=== PATIENT | male | born 1955 | race Caucasian/White ===

== ENCOUNTER 2019-02-18 12:47 | Emergency (ER) | payer MEDICAID, OTHER ==
[~2019-02-18] VITALS: Ht 167.6 cm; Wt 72.6 kg
[2019-02-18] MEDS ORDERED: SODIUM CHLORIDE 0.9% 1,000 ML IV ONE (12:56)
[2019-02-18 13:25] LABS: Basophils # (auto) 0.1 uL; Basophils % (auto) 2.1 % (0.0-2.0); Eosinophils # (auto) 0.1 uL; Eosinophils % (auto) 2.5 % (0.0-7.0); Hematocrit 33.8 % (41.0-53.0); Hemoglobin 11.5 g/dL (13.5-17.5); Lymphocytes # (auto) 1.5 uL; Mean Corpuscular Hgb Conc. 34.1 g/dL (32.0-36.0); Mean Corpuscular Volume 91.1 fL (80.0-100.0); Monocytes # (auto) 0.9 uL; Neutrophils % (auto) 53.4 % (37.0-80.0); Nucleated Red Blood Cells % 0.1 %; Platelet Count (auto) 239 10^3/uL (140-450); Red Blood Cells 3.71 10^6/uL (4.5-5.90); White Blood Cell 5.7 10^3/uL (4.4-10.8)
[2019-02-18 13:44] LABS: Albumin 3.4 g/dL (3.4-5.0); Calcium 8.6 mg/dL (8.5-10.1)
[2019-02-18 13:52] LABS: Bilirubin, Total 0.4 mg/dL (0.2-1.0); Total Protein 6.9 g/dL (6.4-8.2)
[2019-02-18 13:57] LABS: Potassium 2.9 mmol/L (3.5-5.1)
[2019-02-18] MEDS ORDERED: POTASSIUM CHL 20MEQ/100ML 100 ML IV ONE (14:00)
[2019-02-18 14:18] LABS: Amphetamine Screen, Urine NEGATIVE (NEGATIVE); Barbiturate Scree,Urine NEGATIVE (NEGATIVE); Benzodiazephine Screen, Urine NEGATIVE (NEGATIVE); Cannabinoid Screen, Urine NEGATIVE (NEGATIVE); Cocaine Screen, Urine NEGATIVE (NEGATIVE); Opiate Scree,Urine NEGATIVE (NEGATIVE); Phencyclidine Screen, Urine NEGATIVE (NEGATIVE)
[2019-02-18] MEDS ORDERED: POTASSIUM EFFERVESENT TAB 25 MEQ PO ONE (23:30)
[2019-02-19] VITALS: BP 171/94
== END 2019-02-19 00:26 | disposition home or self-care (01) ==
LOC: ER 12:47 → EDBD 12:47 → EDUNIT# 12:47 → ER 02-19 00:26
DX: S09.90XA Unspecified injury of head, initial encounter (principal); F10.129 Alcohol abuse with intoxication, unspecified; E78.5 Hyperlipidemia, unspecified; I10 Essential (primary) hypertension; X58.XXXA Exposure to other specified factors, initial encounter; Y93.89 Activity, other specified; Y92.89 Other specified places as the place of occurrence of the external cause; Y99.8 Other external cause status; Y90.8 Blood alcohol level of 240 mg/100 ml or more
CPT/HCPCS: 36415; 70450; 71101; 80053; 80307; 80320; 85025; 94761; 99284; J3480; J7030